=== PATIENT | female | born 1980 | race Caucasian/White ===

== ENCOUNTER 2017-04-18 14:21 | Emergency (ER) | payer OTHER, BC, SELFPAY ==
[2017-04-18 14:22] VITALS: BP 126/73; PULSE 88; RESP 17; TEMP 37.2; O2SAT 100; BMI 26.8
--- NOTE | 2017-04-18 15:21 | ED.VISSUMM ---
- ER Visit Summary Date of Service: 04/18/17 Chief Complaint: Hemorrhoids History of Present Illness: The patient is a 37 F who developed hemorrhoids earlier this week at work. she went to [facility] and received medications. she has not had any relief. she developed some bleeding today. no dizziness or lightheadedness. she has been doing sitz baths and hydrocortisone suppositories. Physical Examination: Vitals are reviewed. rectal exam shows one large external hemorrhoid and skin tag. no bleeding. the hemorrhoid is soft. It is not thrombosed. Test Results: none indicated Emergency Department Course and Treatment: Patient does have a nonthrombosed hemorrhoid. I will treat her with witch zoila to rub on the area and colace for soft stools. She will continue her medications at home and will follow up with [facility] Treatment Plan: Disposition: discharge Impression: External hemorrhoids This note was generated with [employer] dictation software. It may contain incorrect words, spelling, and punctuation that were not noted in review of the chart prior to signing ED Disposition - Plan for ED Patient: Chief Complaint: Other, Pain/Inj Referrals: Gualberto Coon MD [Primary Care Provider] -
--- NOTE | 2017-04-18 15:26 | ED.DCSUM_ITS ---
- ER Visit Summary Date of Service: 04/18/17 Chief Complaint: Hemorrhoids History of Present Illness: The patient is a 37 F who developed hemorrhoids earlier this week at work. she went to [facility] and received medications. she has not had any relief. she developed some bleeding today. no dizziness or lightheadedness. she has been doing sitz baths and hydrocortisone suppositories. Physical Examination: Vitals are reviewed. rectal exam shows one large external hemorrhoid and skin tag. no bleeding. the hemorrhoid is soft. It is not thrombosed. Test Results: none indicated Emergency Department Course and Treatment: Patient does have a nonthrombosed hemorrhoid. I will treat her with witch zoila to rub on the area and colace for soft stools. She will continue her medications at home and will follow up with [facility] Treatment Plan: Disposition: discharge Impression: External hemorrhoids This note was generated with [employer] dictation software. It may contain incorrect words, spelling, and punctuation that were not noted in review of the chart prior to signing ED Disposition - Plan for ED Patient: Chief Complaint: Other, Pain/Inj Referrals: Gualberto Coon MD [Primary Care Provider] -
--- NOTE | 2017-04-18 15:27 | DCINST.ED_ITS ---
ED Disposition - Plan for ED Patient: Disposition: Home or Assisted Living Chief Complaint: Other, Pain/Inj Instructions: ED Hemorrhoids Prescriptions: Docusate Sodium [Colace] 100 mg PO DAILY #20 cap Witch Ashlyn [place] [Witch Ashlyn] 480 ml TP TID #1 liquid Referrals: Gualberto Coon MD [Primary Care Provider] -
[2017-04-18 15:42] VITALS: PULSE 86; RESP 14; O2SAT 99
== END 2017-04-18 15:42 | disposition home or self-care (01) ==
PROVIDERS: Emergency Provider Emergency Medicine; Family Provider Family Medicine; PCP Family Medicine
DX: K64.4 Residual hemorrhoidal skin tags (principal); Z86.69 Personal history of other diseases of the nervous system and sense organs
CPT/HCPCS: 99282

== ENCOUNTER 2019-03-18 10:04 | Emergency (ER) | payer BC, SELFPAY ==
[2019-03-18 10:06] VITALS: BP 139/82; PULSE 97; RESP 17; TEMP 36.6; O2SAT 98; BMI 27.8
--- NOTE | 2019-03-18 10:17 | CT_ITS ---
STUDY: CT BRAIN WITH AND WITHOUT CONTRAST REASON FOR EXAM: Female, 38 years old. Numbness and tingling to left hand and foot x 3 days RADIATION DOSAGE (If Supplied By Facility): CTDIvol = ( 44.99 ) mGy, DLP = ( 1479.73 ) mGycm TECHNIQUE: Transaxial CT imaging of the brain was performed pre and post contrast administration. The examination was performed with intravenous administration of IV 50mL Isovue-370. Individualized dose optimization techniques were used for this CT. COMPARISON: None. FINDINGS: Normal soft tissue structures. Stable right parietal hemangioma Normal size ventricles and extra-axial spaces for the patient''s age. Normal white matter tracts of the cerebral hemispheres. Normal basal ganglia and thalami. Normal brainstem. Normal cerebellum. There is no intracranial hemorrhage. There are no findings of an acute ischemic infarction. No suspicious enhancing lesion. Normal visualized paranasal sinuses. CT/Brain/Head W/WO Contrast IMPRESSION: Normal unenhanced and enhanced CT scan of the brain. Stable right parietal hemangioma Electronically Signed: Anup Barth MD at 11:48 EST , Service support ,
--- NOTE | 2019-03-18 10:18 | ED.DCSUM_ITS ---
History of Present Illness Chief Complaint: Numb/Ting Informant: Patient Onset: Days Context: Gradual Onset Timing: Intermittent Current Severity: Moderate Maximum Severity: Moderate Narrative: The patient is a 38-year-old female with history of migraines and meningioma that presents to the emergency department with increasing left-sided weakness. The patient states that she has a known brain mass that is been followed for the past 12 years. She states she follows with [facility]. Her last imaging was in December 2017. She states that in the right posterior aspect of her brain. She states over the past 3 weeks, she has had intermittent cramping and abnormal motion of the left hand. She also feels like her left foot has had paresthesias. She denies increasing headaches. She does admit to occasional nausea. She denies any vomiting. She denies any visual change or head trauma. Prior similar symptoms: No Recent Illness/Hospitalization: No Past Medical History - Allergies and Home Meds Allergies/Adverse Reactions: Allergies amoxicillin [Amoxicillin] Allergy (Mild, Verified 03/18/19 10:06) Hives clavulanic acid [From Augmentin] Allergy (Verified 03/18/19 10:06) Unknown sulfamethoxazole [From Bactrim] Allergy (Verified 03/18/19 10:06) Unknown trimethoprim [From Bactrim] Allergy (Verified 03/18/19 10:06) Unknown Primary Care Physician: Kamla Stallings PA [Primary Care Provider] - Prior records reviewed: Yes Past Medical History: - - Migraines, meningioma Surgical History: noncontributory Smoking Status: Never smoker - Family History Maternal Family History: Reports: No pertinent history Review of Systems General: Denies: Chills, Fever, Sweats Eyes: Denies: Visual changes - bilaterally, Diplopia ENT: Denies: Rhinorrhea, Sore throat Cardiovascular: Denies: Chest pain, Palpitations Respiratory: Denies: Dyspnea, Cough, Dyspnea on exertion Gastrointestinal: Denies: Abdominal pain, Nausea, Vomiting, Diarrhea, Melena, Hematochezia Genitourinary: Denies: Dysuria, Hematuria, Frequency Musculoskeletal: Denies: Back pain, Extremity Pain Skin: Denies: Rash, Wounds Neurological: Reports: Weakness, Parasthesia, Numbness. Denies: Headache Physical Exam Vital Signs/Narrative: Vital Signs Temp Pulse Resp BP Pulse Ox 03/18/19 10:06 97.8 F 97 17 139/82 H 98 Inital Vital Signs reviewed: Yes General: Well nourished, Well developed, No Acute Distress Head: Normocephalic, Atraumatic Eyes: Perrl, EOMI ENT: Moist mucous membranes, No rhinorrhea Neck: Supple, Nontender Cardiovascular: Regular rate, Regular rhythm, No murmurs Respiratory: No distress, CTA bilaterally, Chest nontender Abdomen: Soft, Nontender, Nondistended, Normal bowel sounds Back: Nontender, Normal Inspection Extremities: Nontender, No edema Skin: Normal color, No rash Neurological: Alert, Oriented x3, Cranial nerves II-XII grossly intact, Normal Strength, Normal Sensation Psychological: Normal affect, Normal Mood Diagnostic/Tx/Re-eval Clinical Impression(s) from Imaging Studies Brain CT 03/18/19 10:17 IMPRESSION: Normal unenhanced and enhanced CT scan of the brain. Stable right parietal hemangioma Electronically Signed: Anup Barth MD at 11:48 EST , Service support , Abnormal Lab Results 03/18/19 03/18/19 03/18/19 10:35 10:40 10:40 WBC 5.0 RBC 4.77 Hgb 13.2 Hct 40.6 MCV 85.1 MCH 27.7 MCHC 32.5 RDW Std Deviation 38.1 RDW Coeff of Angel 12.3 Plt Count 325 MPV 9.9 Immature Gran % (Auto) 0.200 Neut % (Auto) 66.1 Lymph % (Auto) 26.3 [place] % (Auto) 6.2 Eos % (Auto) 0.8 Baso % (Auto) 0.4 Absolute Neuts (auto) 3.3 Absolute Lymphs (auto) 1.32 Nucleated RBC % 0 Sodium 140 Potassium 3.8 Chloride 110 H Carbon Dioxide 27.0 Anion Gap 3 L BUN 10 Creatinine 0.83 Estim Creat Clear Calc 74.11 Est GFR (MDRD) Af Amer 100 Est GFR (MDRD) Non-Af 83 BUN/Creatinine Ratio 12.1 Glucose 85 Calcium 9.0 Magnesium 2.2 Total Bilirubin 0.50 AST 14 L ALT 19 Alkaline Phosphatase 55 Total Protein 7.6 Albumin 3.9 Globulin 3.7 Albumin/Globulin Ratio 1.1 Urine Test Negative - Medical Decision Making The patient presents with increasing paresthesias in the left hand and left foot. Her neuro exam is reassuring. She has an NIH of 0. I did obtain a contrasted head CT given her history of meningioma. This was unchanged. The meningioma is stable. She has no other risk factor for stroke. She is had no head trauma. Her metabolic work-up was negative. At this point, I do feel that she is safe for outpatient therapy. She was reassured. She is counseled on the importance of following up with her neurologist. She will be discharged home. Impression 1. Paresthesias ED Disposition - Plan for ED Patient: Instructions: Paraesthesias Referrals: Kamla Stallings PA [Primary Care Provider] -
[2019-03-18 11:00] LABS: Absolute Lymphocyte Count 1.32 X10^3/uL (0.83-4.51); Absolute Neutrophil Count 3.3 X10^3/uL (2.0-7.7); Basophil# 0.02 X10^3/uL; Basophil% 0.4 % (0-1); Eosinophil# 0.04 X10^3/uL; Eosinophils% 0.8 % (0-5); Hematocrit 40.6 % (37-47); Hemoglobin 13.2 g/dL (12.0-15.0); Lymphocyte # 1.32 X10^3/ul (4.0); Lymphocyte % 26.3 % (19-41); Mean Corp Hgb Conc 32.5 g/dL (32-36); Mean Corpuscular Hgb 27.7 pg (27.0-32.0); Mean Corpuscular Volume 85.1 fL (81-99); Mean Platelet Vol. 9.9 fl (6.2-12.0); Monocyte# 0.31 X10^3/uL; Monocyte% 6.2 % (0-10); NRBC Flagged by Analyzer 0 % (0-5); Neutrophil # 3.32 X10^3/uL (2.7-7.7); Neutrophil % 66.1 % (47-70); Platelet Count 325 K/mm3 (150-450); RBC Distribution Width CV 12.3 % (11.6-14.6); RBC Distribution Width SD 38.1 fl (35.1-43.9); Red Blood Count 4.77 M/mm3 (4.2-5.4)
[2019-03-18 11:02] LABS: Internal QC Validated? YES +Cl - CLEAR BKGD; Pregnancy, Urine Negative Negative
[2019-03-18] MEDS: 0.9% Normal Saline 1,000 ML 1000 ML IV (11:15)
[2019-03-18 11:16] LABS: ALB/GLOB Ratio 1.1 RATIO (0.9-2.4); AST(SGOT) 14 U/L (15-37); Alanine Aminotransfer ALT/SGPT 19 U/L (13-56); Albumin, Serum 3.9 g/dL (3.2-5.0); Alkaline Phosphatase 55 U/L (45-117); Anion Gap 3 (5-15); BUN 10 mg/dL (7-18); BUN/Creat Ratio 12.1 RATIO (10-20); Chloride 110 mmol/L (98-107); Creatinine, Serum 0.83 mg/dL (0.55-1.02); EST Glomerular Filtration Rate 83 mL/min (>60); Est Glom Filt Rate - Afr Amer 100 mL/min (>60); Estimated Creatinine Clearance 74.11 ml/min; Globulin 3.7 g/dL (2.2-4.2); Glucose 85 mg/dL (74-106); Magnesium 2.2 mg/dL (1.6-2.6); Potassium 3.8 mmol/L (3.5-5.1); Protein, Total 7.6 g/dL (6.4-8.2); Sodium Level 140 mmol/L (136-145)
[2019-03-18 12:21] VITALS: BP 119/73; PULSE 80; RESP 16; O2SAT 99
== END 2019-03-18 12:22 | disposition home or self-care (01) ==
LOC: ED 10:37
PROVIDERS: Emergency Provider Emergency Medicine; PCP Physician Assistant
DX: R20.2 Paresthesia of skin (principal); D32.0 Benign neoplasm of cerebral meninges; G43.909 Migraine, unspecified, not intractable, without status migrainosus
CPT/HCPCS: 70470; 80053; 81025; 83735; 85025; 96360; 99283; J7030; Q9967; A4216

== ENCOUNTER 2021-04-19 06:49 | Outpatient (CLI) | payer BC, SELFPAY ==
--- NOTE | 2021-04-19 08:56 | NEURO_ITS ---
NCS and/or EMG Patient Report Ordering Doctor: Yousif DATE OF SERVICE: 04/19/21 Indication: Intermittent bilateral hand pain and sensory changes (left greater than right). Symptoms occasionally radiate towards the upper arms. Evaluate for nerve entrapment. Findings: Nerve conduction studies were performed in the right and left upper extremities. The right median motor study recording the abductor pollicis brevis showed a normal amplitude, normal distal latency and normal conduction velocity. The right ulnar motor study recording the abductor digiti minimi showed a normal amplitude, normal distal latency and normal conduction velocity. No conduction block or focal slowing was present across the elbow. The right median sensory response recording digit two showed a normal amplitude, latency and conduction velocity. The right ulnar sensory response recording digit five showed a normal amplitude, latency and conduction velocity. The right radial sensory response recording over the extensor snuff box showed a normal amplitude, latency and conduction velocity. The left median motor study recording the abductor pollicis brevis showed a normal amplitude, normal distal latency and normal conduction velocity. The left ulnar motor study recording the abductor digiti minimi showed a normal amplitude , normal distal latency and normal conduction velocity. No conduction block or focal slowing was present across the elbow. The left median sensory response recording digit two showed a normal amplitude, latency and conduction velocity. The left ulnar sensory response recording digit five showed a normal amplitude, latency and conduction velocity. The left radial sensory response recording over the extensor snuff box showed a normal amplitude, latency and conduction velocity. As routine median motor and sensory studies have a false negative rate of 25%, additional internal comparison studies were done to assess for possible median neuropathy at the wrist. These internal comparison studies (median vs. ulnar palmar mixed; median vs. ulnar sensory recording digit four; median vs. ulnar motor studies to the second lumbrical / interosseous; median vs. radial sensory studies recording digit one; median segmental sensory studies comparing the wrist-palm and palm-digit velocities) increase the electrodiagnostic sensitivity rate to 95%. However, due to statistical issues with multiple tests, it is required that at least two studies are abnormal to reduce the false positive rate to acceptable levels. Right median-ulnar sensory latencies to the ring finger showed a normal median latency compared to the ulnar. Right median-ulnar lumbrical / interosseous motor latencies showed a prolonged median latency compared to the ulnar. Left median-ulnar sensory latencies to the ring finger showed a normal median latency compared to the ulnar. Left median-ulnar lumbrical / interosseous motor latencies showed a prolongedl median latency compared to the ulnar. Needle EMG of the left upper extremity and cervical paraspinal muscles was performed. No denervation was seen in any muscle. All motor unit morphology, activation and recruitment patterns were normal. Needle EMG of the right upper extremity and cervical paraspinal muscles was omitted due to the absence of symptoms in the more symptomatic limb. Impression: This is a normal study. There is no electrophysiologic evidence of median neuropathy across the wrist on either side. In addition, there is no electrophysiologic evidence of cervical radiculopathy, brachial plexopathy or other entrapment neuropathy in the left upper extremity. Please note: electrodiagnostic testing is appropriately 95% sensitive in detecting median neuropathy across the wrist when multiple internal comparison studies are done, as was performed in this case. However, 5% of patients will have a false negative study. Presumably, in these patients, intermittent compression results in pain and paresthesias from ischemia, but without any fixed demyelination or axonal loss that can be demonstrated on electrodiagnostic studies. Thus, clinical correlation is required in the interpretation of this negative study. Venkat Melendez D.O. [employer] Codes Neurology Neurology Interp Codes: 94135-42 Musc test done w/n test comp (interp) and 44882-64 Nr cnd test 13/> studies (interp)
== END 2021-04-19 23:59 | disposition home or self-care (01) ==
PROVIDERS: PCP Physician Assistant; Visit Provider Nurse Practitioner Family
DX: R20.0 Anesthesia of skin (principal); R20.2 Paresthesia of skin; M79.641 Pain in right hand; M79.642 Pain in left hand
CPT/HCPCS: 95886; 95913

== ENCOUNTER 2024-05-26 18:41 | Emergency (ER) | payer BC, SELFPAY ==
[2024-05-26 18:42] VITALS: BP 115/72; PULSE 72; RESP 14; TEMP 36.4; O2SAT 100; BMI 26.9
== END 2024-05-26 20:30 | disposition left against medical advice (07) ==
LOC: ED 20:41
PROVIDERS: PCP Physician Assistant
DX: Z00.00 Encounter for general adult medical examination without abnormal findings (principal)